=== PATIENT | female | born 2000 | race Caucasian/White ===

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

== ENCOUNTER 2020-12-03 16:06 | Emergency (ER) | payer OTHER ==
[~2020-12-03 16:06] MED LIST: BENADRYL 25MG C25 MG PO; CIPRO500 MG PO; CYCLOBENZAPRINE10 MG PO; DOXYCYCLINE HY100 MG PO; FLAGYL500 MG PO; HYDROXYZINE HCL25 MG PO; K-DUR TAB 20 M20 MEQ PO; LODINE CAP 300300 MG PO; MEDROL DOSEPAK 24 MG PO; NORFLEX 100 MG100 MG PO; PERCOCET 5/325 T1 EA PO; PHENERGAN12.5 MG PR; POTASSIUM20 MEQ/11 PO; PREDNISONE 20 M20 MG PO; TENORMIN 25 MG25 MG PO; TORADOL 10 MG T10 MG PO; ZOFRAN ODT 4 MG4 MG PO; ZOFRAN ODT 4 MG4 MG SL; ZOFRAN ODT4 MG PO; ZOFRAN4 MG PO
[2020-12-03 17:24] LABS: HEMOGLOBIN 13.3 gm/dl (12.3-15.3); RED BLOOD COUNT 4.56 M/UL (4.00-5.10)
[2020-12-03 17:38] LABS: BUN/CREATININE RATIO 13 (0-10)
[2020-12-03] MEDS ORDERED: LODINE CAP 300300 MG PO (19:20)
[2020-12-03] MEDS ORDERED: NORFLEX 100 MG100 MG PO (19:20)
[2020-12-03] MEDS ORDERED: MECLIZINE HCL25 MG PO (19:28)
== END 2020-12-03 19:36 | disposition home or self-care (01) ==
LOC: ER1 16:06
PROVIDERS: Physician Assistant
DX: S06.9X9A Unspecified intracranial injury with loss of consciousness of unspecified duration, initial encounter (principal); M43.6 Torticollis; H73.21 Unspecified myringitis, right ear; Z91.040 Latex allergy status; Z88.8 Allergy status to other drugs, medicaments and biological substances; W19.XXXA Unspecified fall, initial encounter
CPT/HCPCS: 70450; 71045; 80053; 81001; 82550; 82553; 83874; 84484; 84703; 85025; 85379; 93005; 93270; 96374; 96375; 99285; J2060; J2360

== ENCOUNTER 2020-12-07 20:57 | Emergency (ER) | payer OTHER ==
[~2020-12-07 20:57] MED LIST changes: +MECLIZINE HCL25 MG PO
[2020-12-07 22:37] LABS: HEMOGLOBIN 13.1 gm/dl (12.3-15.3); RED BLOOD COUNT 4.57 M/UL (4.00-5.10); WHITE BLOOD COUNT 13.3 K/UL (4.5-11.0)
[2020-12-07 23:09] LABS: BUN/CREATININE RATIO 14 (0-10)
== END 2020-12-08 05:10 | disposition home or self-care (01) ==
LOC: ER1 20:57
PROVIDERS: Family Medicine
DX: M62.838 Other muscle spasm (principal); R56.9 Unspecified convulsions; Z88.5 Allergy status to narcotic agent; Z88.8 Allergy status to other drugs, medicaments and biological substances; Z91.040 Latex allergy status
CPT/HCPCS: 71045; 80053; 80175; 82550; 82553; 83874; 84484; 85025; 85610; 93005; 96372; 96374; 96375; 99285; J1200; J1630; J2060

== ENCOUNTER 2021-01-01 17:12 | Emergency (ER) | payer OTHER ==
[2021-01-01 17:50] LABS: RED BLOOD COUNT 4.48 M/UL (4.00-5.10); WHITE BLOOD COUNT 9.3 K/UL (4.5-11.0)
[2021-01-01 18:05] LABS: BUN/CREATININE RATIO 17 (0-10)
[2021-01-01 21:34] LABS: HEMOGLOBIN 11.5 gm/dl (12.3-15.3)
[2021-01-01 21:45] LABS: RED BLOOD COUNT 3.96 M/UL (4.00-5.10)
== END 2021-01-01 22:30 | disposition home or self-care (01) ==
LOC: ER1 17:12
PROVIDERS: Emergency Medicine; Family Medicine
DX: R07.9 Chest pain, unspecified (principal); R06.02 Shortness of breath; R20.2 Paresthesia of skin; T38.0X5A Adverse effect of glucocorticoids and synthetic analogues, initial encounter; F41.9 Anxiety disorder, unspecified; Z88.5 Allergy status to narcotic agent; Z88.8 Allergy status to other drugs, medicaments and biological substances
CPT/HCPCS: 71045; 80053; 80307; 81001; 82550; 82553; 83735; 83874; 84439; 84443; 84484; 84703; 85025; 93005; 96365; 96375; 99285; J1200; J2060

== ENCOUNTER 2021-01-03 00:13 | Observation (INO) | payer OTHER ==
[~2021-01-03] VITALS: Ht 160 cm; Wt 58.1 kg
[2021-01-03] MEDS ORDERED: BRIVIACT100 MG PO (02:33)
[2021-01-03] MEDS ORDERED: LAMICTAL100 MG PO (02:34)
[2021-01-03] MEDS ORDERED: FOLIC ACID1 MG PO (02:34)
[2021-01-03 11:47] LABS: HEMOGLOBIN 11.1 gm/dl (12.3-15.3); RED BLOOD COUNT 3.84 M/UL (4.00-5.10)
[2021-01-03 11:48] LABS: WHITE BLOOD COUNT 4.7 K/UL (4.5-11.0)
[2021-01-03 12:05] LABS: BUN/CREATININE RATIO 17 (0-10)
--- NOTE | 2021-01-03 18:49 | NUR ---
PATIENT REPORTS OF HEADACHE, SHAKING (NO VISIBLE SHAKENESS NOTED), AND THIS REPORTED TO DR. LONGORIA WITH ORDER RECEIVED
[2021-01-04 04:57] LABS: HEMOGLOBIN 11.2 gm/dl (12.3-15.3); RED BLOOD COUNT 3.88 M/UL (4.00-5.10)
[2021-01-04 04:59] LABS: WHITE BLOOD COUNT 6.3 K/UL (4.5-11.0)
[2021-01-04 05:19] LABS: BUN/CREATININE RATIO 16 (0-10)
[2021-01-04] MEDS ORDERED: LAMOTRIGINE150 MG PO (08:59)
--- NOTE | 2021-01-04 09:07 | NUR ---
REPORTED PATIENT NOT TAKING HER VISTARIL, LOW B/P AND COMPLAINTS OF HEADACH TO LAUREL. HE ACKNOWLEDGED
--- NOTE | 2021-01-04 09:41 | NUR ---
INFORMED DR. LONGORIA OF PATIENT REFUSING TO TAKE VISTARIL DURING HIS VISIT WITH THE PATIENT .
[2021-01-04] MEDS ORDERED: ZOFRAN 4 MG TAB4 MG PO (10:33)
[2021-01-04] MEDS ORDERED: TORADOL 10 MG T10 MG PO (10:33)
== END 2021-01-04 16:31 | disposition home or self-care (01) ==
LOC: MED SURG 4 00:13 → M/S 01:38
PROVIDERS: Internal Medicine; ADMIT Internal Medicine
DX: G40.909 Epilepsy, unspecified, not intractable, without status epilepticus (principal); F29 Unspecified psychosis not due to a substance or known physiological condition; M43.6 Torticollis; G24.9 Dystonia, unspecified; E87.6 Hypokalemia; F41.9 Anxiety disorder, unspecified; Z90.49 Acquired absence of other specified parts of digestive tract; Z79.899 Other long term (current) drug therapy
CPT/HCPCS: 36415; 72040; 80048; 85027; G0378; G0379; J1885; J2405; J7040; Q0177

== ENCOUNTER 2021-02-11 22:53 | Emergency (ER) | payer OTHER ==
[~2021-02-11 22:53] MED LIST changes: +BRIVIACT100 MG PO; +FOLIC ACID1 MG PO; +LAMICTAL100 MG PO; +LAMOTRIGINE150 MG PO; +ZOFRAN 4 MG TAB4 MG PO
[2021-02-11 23:41] LABS: HEMOGLOBIN 13.1 gm/dl (12.3-15.3); RED BLOOD COUNT 4.48 M/UL (4.00-5.10); WHITE BLOOD COUNT 6.2 K/UL (4.5-11.0)
[2021-02-12 00:04] LABS: BUN/CREATININE RATIO 22 (0-10)
== END 2021-02-12 01:54 | disposition home or self-care (01) ==
LOC: ER1 22:53
PROVIDERS: Emergency Medicine
DX: G40.909 Epilepsy, unspecified, not intractable, without status epilepticus (principal); Z88.5 Allergy status to narcotic agent; Z91.040 Latex allergy status; Z88.8 Allergy status to other drugs, medicaments and biological substances
CPT/HCPCS: 80053; 81001; 83605; 84703; 85025; 99284

== ENCOUNTER 2021-05-07 18:35 | Emergency (ER) | payer OTHER ==
[2021-05-07 19:45] LABS: HEMOGLOBIN 11.6 gm/dl (12.3-15.3); RED BLOOD COUNT 4.18 M/UL (4.00-5.10); WHITE BLOOD COUNT 6.6 K/UL (4.5-11.0)
[2021-05-07 20:12] LABS: BUN/CREATININE RATIO 27 (0-10)
== END 2021-05-07 23:01 | disposition home or self-care (01) ==
LOC: ER1 18:35
PROVIDERS: Physician Assistant
DX: G40.409 Other generalized epilepsy and epileptic syndromes, not intractable, without status epilepticus (principal); Z88.5 Allergy status to narcotic agent; Z88.8 Allergy status to other drugs, medicaments and biological substances
CPT/HCPCS: 71045; 80053; 80175; 80307; 81001; 84703; 85025; 87086; 99284

== ENCOUNTER 2021-06-08 13:03 | Emergency (ER) | payer OTHER ==
[2021-06-08 15:55] LABS: HEMOGLOBIN 13.6 gm/dl (12.3-15.3); RED BLOOD COUNT 4.66 M/UL (4.00-5.10)
[2021-06-08 16:29] LABS: BUN/CREATININE RATIO 14 (0-10)
== END 2021-06-08 16:58 | disposition home or self-care (01) ==
LOC: ER1 13:03
PROVIDERS: Emergency Medicine
DX: G40.409 Other generalized epilepsy and epileptic syndromes, not intractable, without status epilepticus (principal); Z20.822 Contact with and (suspected) exposure to COVID-19; Z88.5 Allergy status to narcotic agent; Z91.040 Latex allergy status; Z88.8 Allergy status to other drugs, medicaments and biological substances
CPT/HCPCS: 70450; 71045; 80053; 80307; 81001; 82550; 82553; 83735; 83874; 84100; 84439; 84443; 84484; 84703; 85025; 87086; 93005; 99285; U0002

== ENCOUNTER 2021-06-18 00:11 | Emergency (ER) | payer OTHER | END 2021-06-18 02:35 | disposition left against medical advice (07) | LOC: ER1 00:11 | DX: Z53.21 Procedure and treatment not carried out due to patient leaving prior to being seen by health care provider (principal) | CPT/HCPCS: 81001; J1885; J2405 ==

== ENCOUNTER 2021-06-18 14:44 | Observation (INO) | payer OTHER ==
[~2021-06-18] VITALS: Ht 157.5 cm; Wt 54.4 kg
[2021-06-18 16:09] LABS: HEMOGLOBIN 13.8 gm/dl (12.3-15.3); RED BLOOD COUNT 4.72 M/UL (4.00-5.10); WHITE BLOOD COUNT 6.5 K/UL (4.5-11.0)
[2021-06-18 16:33] LABS: BUN/CREATININE RATIO 22 (0-10)
[2021-06-19 07:18] LABS: WHITE BLOOD COUNT 7.4 K/UL (4.5-11.0)
[2021-06-19 07:24] LABS: HEMOGLOBIN 11.3 gm/dl (12.3-15.3); RED BLOOD COUNT 3.95 M/UL (4.00-5.10)
[2021-06-19 07:36] LABS: BUN/CREATININE RATIO 21 (0-10)
--- NOTE | 2021-06-19 12:45 | NUR ---
patient boyfriend arrived with [facility] and stated given this medicine to patient.
--- NOTE | 2021-06-19 16:29 | NUR ---
patient had episode of seizure activity when brought back from mri, approx < 1min. vital signs 123/73.113,18, 100% 022l via nasal cannula. patient resting at this time with family member in the room. reported the above to and she stated allen on my way to check patient
--- NOTE | 2021-06-19 16:31 | NUR ---
patient waking up and will cont to monitor
--- NOTE | 2021-06-19 16:51 | NUR ---
dr. cason on the floor assessing patient, aware of the 022L via n/c applied on the patient.
[2021-06-20 09:43] LABS: BUN/CREATININE RATIO 20 (0-10)
--- NOTE | 2021-06-20 17:47 | NUR ---
1720 Patient noted to have seizure activity lasting approximately 1 minute. Resting quietly afterward. B/P118/70, P109, R16, T98.7, O2 Sat 100% on roomair.
== END 2021-06-20 22:11 ==
LOC: ER1 14:44 → M/S 22:14 → CDU 22:14 → M/S 06-19 02:31
PROVIDERS: Emergency Medicine; Internal Medicine; ADMIT Internal Medicine
DX: G40.201 Localization-related (focal) (partial) symptomatic epilepsy and epileptic syndromes with complex partial seizures, not intractable, with status epilepticus (principal); L72.0 Epidermal cyst; M25.562 Pain in left knee; R10.9 Unspecified abdominal pain; M53.3 Sacrococcygeal disorders, not elsewhere classified; M79.605 Pain in left leg; M47.817 Spondylosis without myelopathy or radiculopathy, lumbosacral region; F41.9 Anxiety disorder, unspecified; Z20.822 Contact with and (suspected) exposure to COVID-19; Z90.49 Acquired absence of other specified parts of digestive tract; Z88.6 Allergy status to analgesic agent; Z88.8 Allergy status to other drugs, medicaments and biological substances; Z91.040 Latex allergy status
CPT/HCPCS: 36415; 70450; 72158; 80048; 80053; 81001; 83735; 84703; 85025; 85652; 86140; 87086; 93971; 96374; 96375; 96376; 99284; A9577; G0378; J0330; J0696; J1885; J1953; J2060; J2405; Q9967; U0002

== ENCOUNTER 2021-07-07 21:21 | Emergency (ER) | payer OTHER ==
[2021-07-08] MEDS ORDERED: VENTOLIN HFA 66.7 GM INH (17:54)
[2021-07-08] MEDS ORDERED: ZITHROMAX250 MG PO (17:54)
[2021-07-08] MEDS ORDERED: DELSYM30 MG/5 ML PO (17:54)
[2021-07-08] MEDS ORDERED: ZOFRAN4 MG PO (17:54)
== END 2021-07-07 22:00 | disposition left against medical advice (07) ==
LOC: ER1 21:21
DX: Z53.21 Procedure and treatment not carried out due to patient leaving prior to being seen by health care provider (principal)

== ENCOUNTER 2021-07-08 14:08 | Emergency (ER) | payer OTHER ==
[2021-07-08 16:20] LABS: HEMOGLOBIN 13.2 gm/dl (12.3-15.3); RED BLOOD COUNT 4.83 M/UL (4.00-5.10); WHITE BLOOD COUNT 4.5 K/UL (4.5-11.0)
[2021-07-08 16:49] LABS: BUN/CREATININE RATIO 17 (0-10)
[2021-07-08] MEDS ORDERED: ZOFRAN4 MG PO (17:54)
[2021-07-08] MEDS ORDERED: VENTOLIN HFA 66.7 GM INH (17:54)
[2021-07-08] MEDS ORDERED: ZITHROMAX250 MG PO (17:54)
[2021-07-08] MEDS ORDERED: DELSYM30 MG/5 ML PO (17:54)
== END 2021-07-08 18:25 | disposition home or self-care (01) ==
LOC: ER1 14:08
PROVIDERS: Physician Assistant
DX: U07.1 COVID-19 (principal); Z90.49 Acquired absence of other specified parts of digestive tract; Z88.8 Allergy status to other drugs, medicaments and biological substances
CPT/HCPCS: 71045; 80053; 82550; 82553; 83605; 83874; 84484; 85025; 87040; 93005; 99285; J2930

== ENCOUNTER 2021-07-12 18:34 | Emergency (ER) | payer OTHER ==
[~2021-07-12 18:34] MED LIST changes: +DELSYM30 MG/5 ML PO; +VENTOLIN HFA 66.7 GM INH; +ZITHROMAX250 MG PO
[2021-07-12 20:11] LABS: HEMOGLOBIN 13.3 gm/dl (12.3-15.3); RED BLOOD COUNT 4.76 M/UL (4.00-5.10); WHITE BLOOD COUNT 4.4 K/UL (4.5-11.0)
[2021-07-12 20:32] LABS: BUN/CREATININE RATIO 14 (0-10)
== END 2021-07-12 22:03 | disposition home or self-care (01) ==
LOC: ER1 18:34
PROVIDERS: Student in an Organized Health Care Education/Training Program
DX: U07.1 COVID-19 (principal); G40.909 Epilepsy, unspecified, not intractable, without status epilepticus
CPT/HCPCS: 80053; 82550; 82553; 83735; 83874; 84100; 84484; 84702; 85025; 93005; 99284

== ENCOUNTER 2021-07-18 14:45 | Emergency (ER) | payer OTHER ==
[2021-07-18 16:08] LABS: RED BLOOD COUNT 4.84 M/UL (4.00-5.10); WHITE BLOOD COUNT 7.1 K/UL (4.5-11.0)
[2021-07-18 16:39] LABS: BUN/CREATININE RATIO 16 (0-10)
== END 2021-07-18 20:47 | disposition home or self-care (01) ==
LOC: ER1 14:45
PROVIDERS: Physician Assistant Medical
DX: R07.89 Other chest pain (principal); E87.6 Hypokalemia; Z86.16 Personal history of COVID-19; Z90.49 Acquired absence of other specified parts of digestive tract; Z88.8 Allergy status to other drugs, medicaments and biological substances; Z91.040 Latex allergy status; Z88.5 Allergy status to narcotic agent
CPT/HCPCS: 71045; 80053; 82550; 82553; 83874; 84484; 85025; 85379; 85610; 85730; 93005; 96372; 99285; J1885

== ENCOUNTER 2021-11-06 17:22 | Emergency (ER) | payer OTHER ==
[2021-11-06 18:19] LABS: RED BLOOD COUNT 4.1 M/UL (4.00-5.10); WHITE BLOOD COUNT 8.8 K/UL (4.5-11.0)
[2021-11-06 18:50] LABS: BUN/CREATININE RATIO 17 (0-10)
[2021-11-06 20:06] LABS: BORDETELLA PARAPERTUSSIS Not Detected (Not Detectd); BORDETELLA PERTUSSIS Not Detected (Not Detectd); CHLAMYDIA PNEUMONIAE Not Detected (Not Detectd); CORONAVIRUS HKU1 Not Detected (Not Detectd); CORONAVIRUS NL63 Not Detected (Not Detectd); CORONAVIRUS OC43 Not Detected (Not Detectd); CORONOAVIRUS 229E Not Detected (Not Detectd); HUMAN METAPNEUMOVIRUS Not Detected (Not Detectd); HUMAN RHINOVIRUS/ENTEROVIRUS Not Detected (Not Detectd); INFLUENZA A Not Detected (Not Detectd); INFLUENZA B Not Detected (Not Detectd); MYCOPLASMA PNEUMONIAE Not Detected (Not Detectd); PARAINFLUENZA VIRUS 1 Not Detected (Not Detectd); PARAINFLUENZA VIRUS 2 Not Detected (Not Detectd); PARAINFLUENZA VIRUS 3 Not Detected (Not Detectd); PARAINFLUENZA VIRUS 4 Not Detected (Not Detectd); RESPIRATORY SYNCYTIAL VIRUS Not Detected (Not Detectd)
[2021-11-06 20:56] LABS: SARS-CoV-2 NOT DETECTED (Not Detectd)
[2021-11-07] MEDS ORDERED: LAMOTRIGINE200 MG PO (11:57)
== END 2021-11-06 17:56 | disposition other institution (70) ==
LOC: ER1 17:22
PROVIDERS: Family Medicine; Student in an Organized Health Care Education/Training Program
DX: G40.901 Epilepsy, unspecified, not intractable, with status epilepticus (principal); F41.9 Anxiety disorder, unspecified; N39.0 Urinary tract infection, site not specified; Z20.822 Contact with and (suspected) exposure to COVID-19
CPT/HCPCS: 70450; 71045; 80053; 80307; 81001; 83605; 84703; 85025; 87040; 87086; 87633; 96374; 96375; 96376; 99285; J0696; J1953; J2060; J2405; J2543; Q2009

== ENCOUNTER 2022-03-22 15:16 | Emergency (ER) | payer OTHER ==
[~2022-03-22 15:16] MED LIST changes: +LAMOTRIGINE200 MG PO
[2022-03-22 16:08] LABS: HEMOGLOBIN 13.2 gm/dl (12.3-15.3); RED BLOOD COUNT 4.61 M/UL (4.00-5.10); WHITE BLOOD COUNT 6.1 K/UL (4.5-11.0)
[2022-03-22 16:23] LABS: BUN/CREATININE RATIO 32 (0-10)
== END 2022-03-22 20:10 | disposition home or self-care (01) ==
LOC: ER1 15:16
PROVIDERS: Preventive Medicine Occupational Medicine
DX: G40.909 Epilepsy, unspecified, not intractable, without status epilepticus (principal); F45.9 Somatoform disorder, unspecified; J10.1 Influenza due to other identified influenza virus with other respiratory manifestations; Z20.822 Contact with and (suspected) exposure to COVID-19
CPT/HCPCS: 0240U; 80048; 85025; 93005; 96374; 96375; 99284; J1953; J2060

== ENCOUNTER 2022-03-27 14:09 | Emergency (ER) | payer OTHER ==
[2022-03-27 14:36] LABS: HEMOGLOBIN 12.2 gm/dl (12.3-15.3); RED BLOOD COUNT 4.26 M/UL (4.00-5.10); WHITE BLOOD COUNT 5.6 K/UL (4.5-11.0)
[2022-03-27 14:56] LABS: BUN/CREATININE RATIO 22 (0-10)
== END 2022-03-27 20:31 | disposition home or self-care (01) ==
LOC: ER1 14:09
PROVIDERS: Emergency Medicine
DX: G40.409 Other generalized epilepsy and epileptic syndromes, not intractable, without status epilepticus (principal)
CPT/HCPCS: 70450; 71045; 80048; 80307; 81001; 84703; 85025; J1953

== ENCOUNTER 2022-05-14 19:42 | Emergency (ER) | payer OTHER ==
[2022-05-14 20:29] LABS: HEMOGLOBIN 12.5 gm/dl (12.3-15.3); RED BLOOD COUNT 4.31 M/UL (4.00-5.10); WHITE BLOOD COUNT 7.1 K/UL (4.5-11.0)
[2022-05-14 20:51] LABS: BUN/CREATININE RATIO 15 (0-10)
== END 2022-05-15 00:10 | disposition short-term general hospital (02) ==
LOC: ER1 19:42
PROVIDERS: Student in an Organized Health Care Education/Training Program
DX: G40.909 Epilepsy, unspecified, not intractable, without status epilepticus (principal); R00.0 Tachycardia, unspecified
CPT/HCPCS: 70450; 72125; 80053; 83605; 85025; 96374; 96375; 99285; J1953; J2060; Q2009

== ENCOUNTER 2022-06-29 15:29 | Emergency (ER) | payer OTHER ==
[2022-06-29 16:22] LABS: HEMOGLOBIN 12.9 gm/dl (12.3-15.3); RED BLOOD COUNT 4.41 M/UL (4.00-5.10); WHITE BLOOD COUNT 4.5 K/UL (4.5-11.0)
[2022-06-29 16:47] LABS: BUN/CREATININE RATIO 16 (0-10)
== END 2022-06-29 19:55 | disposition home or self-care (01) ==
LOC: ER1 15:29
PROVIDERS: Preventive Medicine Occupational Medicine
DX: G40.909 Epilepsy, unspecified, not intractable, without status epilepticus (principal); F06.8 Other specified mental disorders due to known physiological condition
CPT/HCPCS: 80053; 85025; 85652; 86140; 96361; 96374; 99284; J1953

== ENCOUNTER 2022-07-15 16:13 | Emergency (ER) | payer OTHER ==
[2022-07-15 17:07] LABS: HEMOGLOBIN 12.9 gm/dl (12.3-15.3); RED BLOOD COUNT 4.44 M/UL (4.00-5.10); WHITE BLOOD COUNT 4.5 K/UL (4.5-11.0)
[2022-07-15 19:52] LABS: BUN/CREATININE RATIO 16 (0-10)
== END 2022-07-15 20:50 | disposition home or self-care (01) ==
LOC: ER1 16:13
PROVIDERS: Emergency Medicine
DX: G40.409 Other generalized epilepsy and epileptic syndromes, not intractable, without status epilepticus (principal); Z91.041 Radiographic dye allergy status; Z88.8 Allergy status to other drugs, medicaments and biological substances; Z88.4 Allergy status to anesthetic agent
CPT/HCPCS: 80048; 82962; 84703; 85025; 99284